=== PATIENT | female | born 1975 | race Caucasian/White ===

== ENCOUNTER 2018-05-14 08:22 | Day surgery (SDC) | payer BC ==
[2018-05-07 10:24] VITALS: BMI 18.8
--- NOTE | 2018-05-11 11:23 | HP ---
Admitting History and Physical - Primary Care Physician PCP: Dmitri Anton - Admission Chief Complaint: Left breast mass History of Present Illness: 42 year old prmenapausal female with bilateral mammogram and US 03/2018 showing 2.5 cm assymetric density right upper outer quadrant which is suggested to be an island of fibroglandular tissue but has increased in size biopsy was advised. Previously biopsied assymetric density left upper inner region has increased in size and excisional biopsy is advised. A right breast US core biopsy as attempted but was cancelled due to review of the films and nothing suspicious was seen on repeat right breast US 05/01/2018 birad 3, by our radiologist. She still requires excisional biopsy of left breast density that has increased in size and 6 month follow up of right breast with an US. 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) ...LMP: 04/24/18 ...: No - Past Surgical History Additional Past Surgical History: ventricular shunt and revision 1985 left breast bx fibroadenoma 1994 - Smoking History Smoking history: Never smoked - Alcohol/Substance Use Hx Alcohol Use: No Home Medications - Allergies Allergies/Adverse Reactions: Allergies Allergy/AdvReac Type Severity Reaction Status Date / Time No Known Allergies Allergy Verified 05/07/18 10:15 - Home Medications Home Medications: Ambulatory Orders NK [No Known Home Medication] 05/07/18 Family Disease History - Family Disease History Family Disease History: CA: Mother (breast 53) Other Family History: mar aunt breast ca 44 Physical Examination Constitutional: Yes: Well Nourished Breast(s): Yes: Other ( B ptotic cups . Onpalpation there is nodularity right upper inner aspect of breast and fairly symmetrical nodularity left breat no clinically suspicious mass or adenopathy) Problem List - Problems (1) Left breast mass Code(s): N63.20 - UNSPECIFIED LUMP IN THE LEFT BREAST, UNSPECIFIED QUADRANT Assessment/Plan Left breast biopsy with mammogram needle localization
[2018-05-14] MEDS ORDERED: LIDOCAINE HCL 1%, 10 MG/ML (20ML VIAL) ONE (11:16)
[2018-05-14] MEDS ORDERED: MIDAZOLAM HCL 2 MG/2 ML SINGLE DOSE VIAL ONE (12:09)
[2018-05-14] MEDS ORDERED: PROPOFOL 20 ML ONE (12:41)
[2018-05-14] MEDS ORDERED: DEXAMETHASONE SOD PHOSPHATE 4 MG/1 ML VIAL ONE (12:41)
[2018-05-14] MEDS ORDERED: ceFAZolin SODIUM 1 GM VIAL ONE (12:41)
[2018-05-14] MEDS ORDERED: ONDANSETRON 4 MG/2 ML VIAL ONE (12:41)
[2018-05-14] MEDS ORDERED: KETOROLAC TROMETHAMINE 30 MG/1 ML VIAL IVPUSH PRN (13:13)
[2018-05-14] MEDS ORDERED: ONDANSETRON 4 MG/2 ML VIAL IVPUSH PRN (13:13)
[2018-05-14] MEDS ORDERED: DEXTROSE 5%-0.45% SALINE 1,000 ML IV SCH (13:15)
[2018-05-14] MEDS ORDERED: ACETAMINOPHEN 325 MG TABLET (FP) PO ONE (13:41)
--- NOTE | 2018-05-14 13:48 | OP ---
DATE OF OPERATION: 05/14/2018 PREOPERATIVE DIAGNOSIS: Left breast mass. POSTOPERATIVE DIAGNOSIS: Left breast mass. PROCEDURE: Left breast incisional biopsy with mammographic needle localization. ANESTHESIA: Local with IV sedation. SURGEON: Vera Anton MD. PAPER BALING MACHINE OPERATOR: NINA Encinas. COMPLICATIONS: None. INDICATIONS: The patient is a 42-year-old G4, P3 premenopausal white female with [place] descent whose mother had breast cancer at age 53. 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 She underwent the mammography and ultrasound recently on April 16, 2018, which continued to show a left breast chronic upper inner quadrant density which was more prominent on recent mammography. There was also some asymmetry in the right beast upper outer quadrant with a vague area on ultrasound in the right breast 10 to 11 oclock region. An attempt was made for ultrasound-guided core biopsy in the right breast area of asymmetry which was seen on ultrasound; however; followup ultrasound showed this area to be benign and the review of the mammography also was felt to be benign so this was not biopsied. The other palpable region in the upper inner aspect of the left breast; however, was felt to be require excisional biopsy due to its increased prominence. DESCRIPTION OF PROCEDURE: She was brought in for the procedure on May 14, 2018. She underwent the needle localization of the prior clip in the upper inner aspect of the left breast. She was then brought to the holding area. In the holding area site verification was made and an informed consent was obtained. She was brought into the operating room and laid on the OR table in the supine position. Venodynes were placed on the lower extremities prior to anesthesia. The left breast was sterilely prepped and draped in the usual fashion with the wire prepped in the field. She underwent IV sedation. Lidocaine 1% was then given around the needle localization site inferior to the exit site of the wire from the skin. A curvilinear incision was made and dissection was undertaken around the needle localization. The breast tissue was completely removed from around the wire. There was a palpable layer of thickening in this region and this was fully excised with the wire in the middle of the specimen. The specimen was oriented with a long lateral short superior suture and specimen radiographs showed removal of the clip in question. Hemostasis was achieved and the breast tissue was then reapproximated using 2-0 plain suture. The skin was closed using interrupted 3-0 deep dermal Vicryl suture and a running 4-0 subcuticular Biosyn suture. Mastisol and Steri-Strips were applied over the wound. The patient tolerated the procedure well without difficulty. Estimated blood loss was minimal and all sponge and needle counts were correct at the end of the case. The patient was awake and alert and will be discharged home the same day once discharge criteria are met. She is to follow up in the office in 1 week for formal wound pathology check. VERA ANTON M.D. [id number]
[2018-05-14 14:25] VITALS: TEMP 97.9
[2018-05-14 14:26] VITALS: PULSE 60
[2018-05-14 14:31] VITALS: BP 109/59
--- NOTE | 2018-05-19 09:39 | PATH ---
Surgical Pathology Report Patient Name: MICAH MORRIS [facility]. Rec. #: [id number] /Age/Gender: 1975 (Age: 42) / F Account: [id number] Location: [facility] [place] [facility] Taken: 05/14/2018 Received: 05/14/2018 Reported: 05/19/2018 Physicians: Dmitri Anton M.D. Specimen(s) Received LEFT BREAST WIDE EXCISION Clinical History Palpable left breast mass Final Diagnosis BREAST, LEFT, WIDE EXCISION: BENIGN BREAST TISSUE SHOWING STROMAL FIBROSIS, MICROCYST FORMATION AND FOCAL USUAL DUCTAL HYPERPLASIA (UDH). Electronically Signed Elly Sexton M.D. Gross Description Received in formalin, labeled "left breast wide excision " is an18 grams, 4 x 3.5 x 2.1 cm. castorena-yellow, irregular, portion of fibroadipose tissue with a needle localization wire present. There is a short suture marking the superior aspect and a long suture marking the lateral aspect, per the surgeon. There is no skin present. The specimen is inked as follows: superior red; lateral blue; inferior orange; medial green; anterior yellow; deep black. The specimen is serially sectioned from superior to inferior. Sectioning reveals a centrally hemorrhagic previous biopsy site surrounded by fibrous tissue abutting the medial margin. The remaining breast parenchyma displays multifocal white fibrous tissue. No definitive mass is identified. The specimen is entirely submitted in 12 cassettes. Time to formalin fixation: 4 minutes Total formalin fixation time: 9 hours LILI/05/15/2018 gustavo/05/15/2018
== END 2018-05-14 14:31 | disposition home or self-care (01) ==
LOC: FASU 08:22
PROVIDERS: ATTEND Surgery Surgical Oncology
PROC: 0HBU0ZX Excision of Left Breast, Open Approach, Diagnostic (ICD-10-PCS; principal; 2018-05-14 12:32)
DX: N60.82 Other benign mammary dysplasias of left breast (principal); Z80.3 Family history of malignant neoplasm of breast; N60.32 Fibrosclerosis of left breast; N64.89 Other specified disorders of breast; N63.20 Unspecified lump in the left breast, unspecified quadrant
CPT/HCPCS: 19281; 84703; 88307-TC